=== PATIENT | female | born 1960 | race Caucasian/White ===

== ENCOUNTER 2024-08-12 23:06 | Inpatient (IN) | payer OTHER, SELFPAY ==
[2024-08-12 23:30] VITALS: BP 151/91; PULSE 89; RESP 18; TEMP 36.6; O2SAT 98
--- NOTE | 2024-08-13 01:01 | PC.ADMIT ---
Patient is a 64 year old female admitted to S1 from [facility] ED on 08/12/24 at 2325 on a CV? for dysregulation and decompensation. Patient has history of schizoaffective disorder. Patient?s brother recently performed a wellness check on patient, in which she was refusing to get out of bed, providing nonsensical answers to questions.? Upon arrival to the unit, patient is calm, cooperative and pleasant with admission process. She is alert and oriented x 3, lacks insight into situation and has moments of confusion. Denies SI/HI/VH. She reports hearing voices of men trying to hurt other people. She is able to contract for safety. She is current every day smoker, declining nicotine replacement at this time. Denies alcohol or current substance use, although reports cocaine use years ago. All legal paperwork completed. Patient does have past medical history of HIV. She has her daily medications with her and have been inventoried with the pharmacy. She has declined the flu shot. Patient is being observed on 5 minute checks.
[2024-08-13 01:04] VITALS: BMI 21.7
[2024-08-13 08:00] VITALS: BP 155/95; PULSE 100; RESP 18; TEMP 36.5; O2SAT 97
--- NOTE | 2024-08-13 08:33 | HO.PSYADMNOT ---
HPI Date of Service: 08/13/24 Chief Complaint: psych Sources of Information: patient interviewed, chart reviewed and crisis/core team assessment reviewed HPI Subjective Notes: Section 12B Narrative: The patient is a 64-year-old female, living alone, with a past history of psychotics symptoms with prior psychiatric admissions who was brought to the emergency room of another hospital since her brother went to her home and found her in bed unable to take care of herself. Apparently she had been noncompliant on her medications. She was rushed to the emergency room, medically cleared and transferring to this facility for psychiatric stabilization. On admission, the patient was a very poor historian she reported that she is taking her medications for his medical problems and she is scheduled to have a shot for August 16. It was clear that the patient is scheduled to have Prolixin injectable but she was unable to verbalize the name. During the intake interview, the patient adamantly denies suicidal ideation she was hypoactive but able to do her own ADL less. We will try to gather more collateral information since the patient is a very poor historian but so far she seems chronically psychotic but easily redirectable. Past Psychiatric History: The patient is a very poor historian but apparently she has a long history of psychotic symptoms with prior psychiatric admissions into the hospital for psychotic decompensation. Medical Evaluation Reviewed: Yes PMF Narrative: History of HIV as per chart on antiretrovirals. Family History: Denies Social History: Unable to fully assess Substance History: Denies Trauma History: Refuses to elaborate Diagnostics Vital Signs (24Hr): Vital Signs - 24 hr 08/12/24 23:30 08/13/24 08:00 Temperature 97.8 F 97.7 F Pulse Rate 89 100 Respiratory Rate 18 18 Blood Pressure 151/91 H 155/95 H Pulse Oximetry 98 97 Oxygen Delivery Method Room Air Room Air BMI result Body Mass Index 21.7 Meds/Allergies Meds Home Medications ?Medication ?Instructions ?Recorded ?Confirmed ?Type dolutegravir 50 mg-rilpivirine 25 1 tab PO DAILY 08/12/24 08/12/24 History mg tablet (Juluca) fluphenazine decanoate 25 mg/mL 37.5 mg IM Q4W 08/12/24 08/12/24 History injection solution Allergies Allergies Allergy/AdvReac Type Severity Reaction Status Date / Time Iodinated Contrast Media Allergy Intermediate Rash Verified 08/12/24 23:14 pollen extracts Allergy Intermediate Itchy Eyes Verified 08/12/24 23:14 haloperidol [From Haldol] AdvReac Intermediate Involuntary Verified 08/13/24 01:32 Spasms Mental Status Exam Mental Status Exam Patient Appearance: Appropriate Patient Orientation: Person and Situation Level of Consciousness: Awake and Appropriate Patient Behavior: Guarded and Passive Mood Description: Withdrawn Affect Description: Constricted Patient Cognition Impaired: Yes Ability to Follow Directions: Good Speech Pattern: Clear Hallucinations: None Delusions: Ideas of Reference Thought Process: Distracted and Slowed Thinking Thought Content: positive for [place] and positive for Poverty of Content Judgement: Poor Assessment & Plan Assessment & Plan (1) Schizophrenia: Status: Acute Code(s): F20.9 - Schizophrenia, unspecified Plan The patient is an elderly female with a past history of schizophrenia who was brought to the facility after her brother found her on bed unable to take care of herself and probably noncompliant with medications. The patient is a very poor historian unable to provide more details but it was clear that the patient was unable to take care of herself in the community. Plan 1. Continue 15 minute checks. 2. We will try to gather more collateral information. 3. On the moment she is on a Section 12 B. We will reassess later on with more information. 4. She is on Prolixin scheduled to have her next injection on August 17 Patient educated on: diagnosis, therapeutic strategies and medical condition Reason for continued inpatient stay Substantial Risk for: inability to function, rapid decompensation and med/psych decompensation Statement Statement: I have reviewed the history and physical and performed a pertinent examination on my patient. No changes have occurred unless specified. If the History and Physical was not performed prior to admission, the Hospitalist's service will be consulted for completing the admission physical. Time Spent With Patient Time: Total time managing care of this patient today _45___ minutes.
--- NOTE | 2024-08-13 08:58 | PC.NURSE ---
Patient states that her IM medication is due 08/16/24 at [facility] in [place], she has it with her and she has been getting it in the hospital.
--- NOTE | 2024-08-13 15:04 | PM.EVENT ---
Event Note Date of Service: 08/13/24 Event Note: attempted to meet with pt for hospitalist medical consult. pt was resting in bed quietly. she declined consult. I explained the reasoning for the consult. to clear her medically for the floor and discuss medical history and any current acute concerns. pt still declined. states she will let us know if anything acute medically comes up. Thank you for allowing me to participate in the pt's care. signing off for now. Please contact the medical team if any questions or concerns. Time Spent With Patient Time: Total time managing care of this patient today ____ minutes.
[2024-08-13 20:00] VITALS: BP 132/70; PULSE 84; RESP 16; TEMP 36.3; O2SAT 98
[2024-08-14] MEDS: Rilpivirine HCL 25 MG TABLET PO (08:26)
[2024-08-14] MEDS: Dolutegravir Sodium 50 MG TABLET PO (08:28)
--- NOTE | 2024-08-14 16:34 | HO.PSYCHPN ---
Subjective Subjective Date of Service: 08/14/24 Reason For Visit: psych Subjective Notes: Conditional Voluntary Interim History: The nursing staff reported the patient remained in her room most of the time seclusive. On interview the patient denies new symptoms looks internally preoccupied. The social work associate will try to get more collateral information and contact her brother. Mental Status Exam Mental Status Exam Patient Appearance: Appropriate Patient Orientation: Person and Situation Level of Consciousness: Awake Patient Behavior: Guarded and Passive Mood Description: Calm Affect Description: Constricted Patient Cognition Impaired: Yes Ability to Follow Directions: Good Speech Pattern: Clear Hallucinations: None Delusions: Not Present Thought Process: Distracted and Slowed Thinking Thought Content: positive for [place] and positive for Poverty of Content Judgement: Poor Diagnostics Vital Signs (24Hr): Vital Signs - 24 hr 08/13/24 20:00 Temperature 97.4 F Pulse Rate 84 Respiratory Rate 16 Blood Pressure 132/70 Pulse Oximetry 98 Oxygen Delivery Method Room Air BMI result Body Mass Index 21.7 Medications Medications Current Medications Acetaminophen (Acetaminophen 325 Mg Tablet) 650 mg PO Q6H PRN PRN Reason: Headache/Pain Mild Scale (1-3) Al Hydroxide/Mg Hydroxide (Magnesium Hydrox/Alum Hydrox 30 Ml Oral.Susp) 30 ml PO Q6H PRN PRN Reason: Heartburn/Nausea Dolutegravir Sodium (Dolutegravir Sodium 50 Mg Tablet) 50 mg PO DAILY [facility] Last Admin: 08/14/24 08:28 Dose: 50 mg Fluphenazine Decanoate (Fluphenazine Decanoate 25 Mg/Ml 5 Ml Vial) 37.5 mg IM Q28D [facility] Hydroxyzine HCl (Hydroxyzine Hcl 25 Mg Tablet) 25 mg PO Q6H PRN PRN Reason: Anxiety Magnesium Hydroxide (Milk Of Magnesia 30 Ml Oral.Susp) 30 ml PO DAILY PRN PRN Reason: Constipation Rilpivirine (Rilpivirine Hcl 25 Mg Tablet) 25 mg PO DAILY [facility] Last Admin: 08/14/24 08:26 Dose: 25 mg Trazodone HCl (Trazodone Hcl 50 Mg Tablet) 50 mg PO BEDTIME MRX1 PRN PRN Reason: Insomnia Allergies Allergies Allergy/AdvReac Type Severity Reaction Status Date / Time Iodinated Contrast Media Allergy Intermediate Rash Verified 08/12/24 23:14 pollen extracts Allergy Intermediate Itchy Eyes Verified 08/12/24 23:14 haloperidol [From Haldol] AdvReac Intermediate Involuntary Verified 08/13/24 01:32 Spasms Assessment & Plan Assessment & Plan (1) Schizophrenia: Status: Acute Code(s): F20.9 - Schizophrenia, unspecified Plan The patient is an elderly female with a past history of schizophrenia who was brought to the facility after her brother found her on bed unable to take care of herself and probably noncompliant with medications. The patient is a very poor historian unable to provide more details but it was clear that the patient was unable to take care of herself in the community. Plan 1. Continue 15 minute checks. 2. We will try to gather more collateral information. 3. On the moment she is on a Section 12 B. We will reassess later on with more information. 4. She is on Prolixin scheduled to have her next injection on August 17 Reason for continued inpatient stay Substantial Risk for: inability to function, rapid decompensation and med/psych decompensation Time Spent With Patient Time: Total time managing care of this patient today __20__ minutes.
[2024-08-15 07:55] VITALS: BP 123/66; PULSE 85; RESP 18; TEMP 36.8; O2SAT 99
[2024-08-15] MEDS: Rilpivirine HCL 25 MG TABLET PO (08:09)
[2024-08-15] MEDS: Dolutegravir Sodium 50 MG TABLET PO (08:09)
--- NOTE | 2024-08-15 12:58 | HO.PSYCHPN ---
Subjective Subjective Date of Service: 08/15/24 Reason For Visit: psych Subjective Notes: Conditional Voluntary Interim History: The nursing staff reported the patient had being seclusive with flat affect. She states that she feels safe in the unit slept well last night. On interview the patient was minimally engageable denies new symptoms. We will try to gather more collateral information Mental Status Exam Mental Status Exam Patient Appearance: Appropriate Patient Orientation: Person and Situation Level of Consciousness: Awake and Appropriate Patient Behavior: Guarded and Passive Mood Description: Withdrawn Affect Description: Constricted Patient Cognition Impaired: Yes Ability to Follow Directions: Good Speech Pattern: Clear Hallucinations: None Delusions: Paranoid Ideation and Ideas of Reference Thought Process: Distracted and Slowed Thinking Thought Content: positive for [place] and positive for Poverty of Content Judgement: Poor Diagnostics Vital Signs (24Hr): Vital Signs - 24 hr 08/15/24 07:55 Temperature 98.2 F Pulse Rate 85 Respiratory Rate 18 Blood Pressure 123/66 Pulse Oximetry 99 Oxygen Delivery Method Room Air BMI result Body Mass Index 21.7 Medications Medications Current Medications Acetaminophen (Acetaminophen 325 Mg Tablet) 650 mg PO Q6H PRN PRN Reason: Headache/Pain Mild Scale (1-3) Al Hydroxide/Mg Hydroxide (Magnesium Hydrox/Alum Hydrox 30 Ml Oral.Susp) 30 ml PO Q6H PRN PRN Reason: Heartburn/Nausea Dolutegravir Sodium (Dolutegravir Sodium 50 Mg Tablet) 50 mg PO DAILY [facility] Last Admin: 08/15/24 08:09 Dose: 50 mg Fluphenazine Decanoate (Fluphenazine Decanoate 25 Mg/Ml 5 Ml Vial) 37.5 mg IM Q28D [facility] Hydroxyzine HCl (Hydroxyzine Hcl 25 Mg Tablet) 25 mg PO Q6H PRN PRN Reason: Anxiety Magnesium Hydroxide (Milk Of Magnesia 30 Ml Oral.Susp) 30 ml PO DAILY PRN PRN Reason: Constipation Rilpivirine (Rilpivirine Hcl 25 Mg Tablet) 25 mg PO DAILY [facility] Last Admin: 08/15/24 08:09 Dose: 25 mg Trazodone HCl (Trazodone Hcl 50 Mg Tablet) 50 mg PO BEDTIME MRX1 PRN PRN Reason: Insomnia Allergies Allergies Allergy/AdvReac Type Severity Reaction Status Date / Time Iodinated Contrast Media Allergy Intermediate Rash Verified 08/12/24 23:14 pollen extracts Allergy Intermediate Itchy Eyes Verified 08/12/24 23:14 haloperidol [From Haldol] AdvReac Intermediate Involuntary Verified 08/13/24 01:32 Spasms Assessment & Plan Assessment & Plan (1) Schizophrenia: Status: Acute Code(s): F20.9 - Schizophrenia, unspecified Plan The patient is an elderly female with a past history of schizophrenia who was brought to the facility after her brother found her on bed unable to take care of herself and probably noncompliant with medications. The patient is a very poor historian unable to provide more details but it was clear that the patient was unable to take care of herself in the community. Plan 1. Continue 15 minute checks. 2. We will try to gather more collateral information. 3. On the moment she is on a Section 12 B. We will reassess later on with more information. 4. She is on Prolixin scheduled to have her next injection on August 17 Reason for continued inpatient stay Substantial Risk for: inability to function, rapid decompensation and med/psych decompensation Time Spent With Patient Time: Total time managing care of this patient today _20___ minutes.
--- NOTE | 2024-08-15 13:34 | P.PNPSI_ITS ---
Subjective Subjective Date of Service: 08/15/24 Reason For Visit: psych Subjective Notes: Conditional Voluntary Interim History: The nursing staff reported the patient had been flat affect, she Diagnostics Vital Signs (24Hr): Vital Signs - 24 hr 08/15/24 07:55 Temperature 98.2 F Pulse Rate 85 Respiratory Rate 18 Blood Pressure 123/66 Pulse Oximetry 99 Oxygen Delivery Method Room Air BMI result Body Mass Index 21.7 Medications Medications Current Medications Acetaminophen (Acetaminophen 325 Mg Tablet) 650 mg PO Q6H PRN PRN Reason: Headache/Pain Mild Scale (1-3) Al Hydroxide/Mg Hydroxide (Magnesium Hydrox/Alum Hydrox 30 Ml Oral.Susp) 30 ml PO Q6H PRN PRN Reason: Heartburn/Nausea Dolutegravir Sodium (Dolutegravir Sodium 50 Mg Tablet) 50 mg PO DAILY [facility] Last Admin: 08/15/24 08:09 Dose: 50 mg Fluphenazine Decanoate (Fluphenazine Decanoate 25 Mg/Ml 5 Ml Vial) 37.5 mg IM Q28D [facility] Hydroxyzine HCl (Hydroxyzine Hcl 25 Mg Tablet) 25 mg PO Q6H PRN PRN Reason: Anxiety Magnesium Hydroxide (Milk Of Magnesia 30 Ml Oral.Susp) 30 ml PO DAILY PRN PRN Reason: Constipation Rilpivirine (Rilpivirine Hcl 25 Mg Tablet) 25 mg PO DAILY [facility] Last Admin: 08/15/24 08:09 Dose: 25 mg Trazodone HCl (Trazodone Hcl 50 Mg Tablet) 50 mg PO BEDTIME MRX1 PRN PRN Reason: Insomnia Allergies Allergies Allergy/AdvReac Type Severity Reaction Status Date / Time Iodinated Contrast Media Allergy Intermediate Rash Verified 08/12/24 23:14 pollen extracts Allergy Intermediate Itchy Eyes Verified 08/12/24 23:14 haloperidol [From Haldol] AdvReac Intermediate Involuntary Verified 08/13/24 01:32 Spasms Assessment & Plan Assessment & Plan (1) Schizophrenia: Status: Acute Code(s): F20.9 - Schizophrenia, unspecified Plan The patient is an elderly female with a past history of schizophrenia who was brought to the facility after her brother found her on bed unable to take care of herself and probably noncompliant with medications. The patient is a very poor historian unable to provide more details but it was clear that the patient was unable to take care of herself in the community. Plan 1. Continue 15 minute checks. 2. We will try to gather more collateral information. 3. On the moment she is on a Section 12 B. We will reassess later on with more information. 4. She is on Prolixin scheduled to have her next injection on August 17 Time Spent With Patient Time: Total time managing care of this patient today ____ minutes.
[2024-08-16 08:00] VITALS: RESP 18
--- NOTE | 2024-08-16 13:30 | HO.PSYCHPN ---
Subjective Subjective Date of Service: 08/16/24 Reason For Visit: psych Subjective Notes: Conditional Voluntary Interim History: The nursing staff reported the patient had been isolative, apparently [facility] had been in. According to the elementary school social worker she contact her brother and apparently she had been admitted 6 times in the last year. On interview the patient was concerned about her injection he was expected that she could be discharged home so she can have for treatment over there she denies active psychotic symptoms but she is mostly isolative. Mental Status Exam Mental Status Exam Patient Appearance: Appropriate (On hospital gowns) Patient Orientation: Person and Situation Level of Consciousness: Awake and Appropriate Patient Behavior: Guarded and Passive Mood Description: Withdrawn Affect Description: Constricted Patient Cognition Impaired: Yes Ability to Follow Directions: Good Speech Pattern: Clear Hallucinations: None Delusions: Paranoid Ideation and Ideas of Reference Thought Process: Distracted and Slowed Thinking Thought Content: positive for [place] and positive for Poverty of Content Judgement: Poor Diagnostics Vital Signs (24Hr): Vital Signs - 24 hr 08/16/24 08:00 Respiratory Rate 18 BMI result Body Mass Index 21.7 Medications Medications Current Medications Acetaminophen (Acetaminophen 325 Mg Tablet) 650 mg PO Q6H PRN PRN Reason: Headache/Pain Mild Scale (1-3) Al Hydroxide/Mg Hydroxide (Magnesium Hydrox/Alum Hydrox 30 Ml Oral.Susp) 30 ml PO Q6H PRN PRN Reason: Heartburn/Nausea Dolutegravir Sodium (Dolutegravir Sodium 50 Mg Tablet) 50 mg PO DAILY [facility] Last Admin: 08/16/24 08:28 Dose: Not Given Fluphenazine Decanoate (Fluphenazine Decanoate 25 Mg/Ml 5 Ml Vial) 37.5 mg IM Q28D [facility] Last Admin: 08/16/24 08:28 Dose: Not Given Hydroxyzine HCl (Hydroxyzine Hcl 25 Mg Tablet) 25 mg PO Q6H PRN PRN Reason: Anxiety Magnesium Hydroxide (Milk Of Magnesia 30 Ml Oral.Susp) 30 ml PO DAILY PRN PRN Reason: Constipation Rilpivirine (Rilpivirine Hcl 25 Mg Tablet) 25 mg PO DAILY [facility] Last Admin: 08/16/24 08:28 Dose: Not Given Trazodone HCl (Trazodone Hcl 50 Mg Tablet) 50 mg PO BEDTIME MRX1 PRN PRN Reason: Insomnia Allergies Allergies Allergy/AdvReac Type Severity Reaction Status Date / Time Iodinated Contrast Media Allergy Intermediate Rash Verified 08/12/24 23:14 pollen extracts Allergy Intermediate Itchy Eyes Verified 08/12/24 23:14 haloperidol [From Haldol] AdvReac Intermediate Involuntary Verified 08/13/24 01:32 Spasms Assessment & Plan Assessment & Plan (1) Schizophrenia: Status: Acute Code(s): F20.9 - Schizophrenia, unspecified Plan The patient is an elderly female with a past history of schizophrenia with long-acting injectables an HIV on treatment. She was brought from the emergency room of another hospital after her brother brought her since she he was on her bed hypoactive unable to take care of herself. Plan 1. We gather some collateral information apparently she had been admitted 6 times in the last year due to psychotic decompensation. 2. We will continue with Prolixin deck. 3. Reassessment with results. Reason for continued inpatient stay Substantial Risk for: inability to function, rapid decompensation and med/psych decompensation Time Spent With Patient Time: Total time managing care of this patient today __20__ minutes.
--- NOTE | 2024-08-16 16:05 | PC.NURSE ---
Patient declined all scheduled medications, notified.
[2024-08-16 20:00] VITALS: BP 121/72; PULSE 85; RESP 18; TEMP 36.2; O2SAT 98
--- NOTE | 2024-08-17 07:51 | HO.PSYCHPN ---
Subjective Subjective Date of Service: 08/17/24 Reason For Visit: psych Subjective Notes: Conditional Voluntary Interim History: The nursing staff reported the patient slept well last night, she remains seclusive in her room. Yesterday she refused her medication at night for HIV since it is not the pills that she used to take. On interview the patient denies new symptoms, she states that she wants to go back home. Apparently the patient had been admitted several times in the last year due to exacerbation of psychosis. We will try to gather more collateral information but it seems that she is mostly seclusive with lack of energy. So we review her Prolixin is every 4 weeks and it seems that he weans off earlier so we will suggest to give it earlier every 3 weeks instead. Mental Status Exam Mental Status Exam Patient Appearance: Appropriate Patient Orientation: Person and Situation Level of Consciousness: Awake and Appropriate Patient Behavior: Guarded and Passive Mood Description: Withdrawn Affect Description: Constricted Patient Cognition Impaired: Yes Ability to Follow Directions: Good Speech Pattern: Clear Hallucinations: None Delusions: Paranoid Ideation and Ideas of Reference Thought Process: Distracted and Slowed Thinking Thought Content: positive for [place] and positive for Poverty of Content Judgement: Fair Diagnostics Vital Signs (24Hr): Vital Signs - 24 hr 08/16/24 08:00 08/16/24 20:00 Temperature 97.2 F Pulse Rate 85 Respiratory Rate 18 18 Blood Pressure 121/72 Pulse Oximetry 98 Oxygen Delivery Method Room Air BMI result Body Mass Index 21.7 Medications Medications Current Medications Acetaminophen (Acetaminophen 325 Mg Tablet) 650 mg PO Q6H PRN PRN Reason: Headache/Pain Mild Scale (1-3) Al Hydroxide/Mg Hydroxide (Magnesium Hydrox/Alum Hydrox 30 Ml Oral.Susp) 30 ml PO Q6H PRN PRN Reason: Heartburn/Nausea Dolutegravir Sodium (Dolutegravir Sodium 50 Mg Tablet) 50 mg PO DAILY [facility] Last Admin: 08/16/24 08:28 Dose: Not Given Fluphenazine Decanoate (Fluphenazine Decanoate 25 Mg/Ml 5 Ml Vial) 37.5 mg IM Q28D [facility] Last Admin: 08/16/24 08:28 Dose: Not Given Fluphenazine Decanoate (Fluphenazine Decanoate 25 Mg/Ml 5 Ml Vial) 37.5 mg IM ONCE ONE Stop: 08/17/24 07:50 Hydroxyzine HCl (Hydroxyzine Hcl 25 Mg Tablet) 25 mg PO Q6H PRN PRN Reason: Anxiety Magnesium Hydroxide (Milk Of Magnesia 30 Ml Oral.Susp) 30 ml PO DAILY PRN PRN Reason: Constipation Rilpivirine (Rilpivirine Hcl 25 Mg Tablet) 25 mg PO DAILY [facility] Last Admin: 08/16/24 08:28 Dose: Not Given Trazodone HCl (Trazodone Hcl 50 Mg Tablet) 50 mg PO BEDTIME MRX1 PRN PRN Reason: Insomnia Allergies Allergies Allergy/AdvReac Type Severity Reaction Status Date / Time Iodinated Contrast Media Allergy Intermediate Rash Verified 08/12/24 23:14 pollen extracts Allergy Intermediate Itchy Eyes Verified 08/12/24 23:14 haloperidol [From Haldol] AdvReac Intermediate Involuntary Verified 08/13/24 01:32 Spasms Assessment & Plan Assessment & Plan (1) Schizophrenia: Status: Acute Code(s): F20.9 - Schizophrenia, unspecified Plan The patient is an elderly female with a past history of schizophrenia with long-acting injectables an HIV on treatment. She was brought from the emergency room of another hospital after her brother brought her since she he was on her bed hypoactive unable to take care of herself. Plan 1. We gather some collateral information apparently she had been admitted 6 times in the last year due to psychotic decompensation. 2. We will continue with Prolixin deck. We are putting her scheduled dose on August 17 37.5 IM. We are considering to change the scheduling every 3 weeks instead of every 4. 3. Reassessment with results. Reason for continued inpatient stay Substantial Risk for: inability to function, rapid decompensation and med/psych decompensation Time Spent With Patient Time: Total time managing care of this patient today __20__ minutes.
[2024-08-17 10:26] VITALS: BP 93/57; PULSE 89; RESP 16; TEMP 36.8; O2SAT 97
[2024-08-17] MEDS: DOLUTEGRAVIR 50 MG PO (10:42)
[2024-08-17] MEDS: RILPIVIRINE 25 MG PO (10:42)
[2024-08-17] MEDS: Acetaminophen 325 MG TABLET 650 MG PO (14:56)
[2024-08-17] MEDS: fluPHENAZine decanoate 25 MG/ML 5 ML VIAL 37.5 MG IM (14:58)
--- NOTE | 2024-08-18 08:01 | P.PNPSI_ITS ---
Subjective Subjective Date of Service: 08/18/24 Reason For Visit: psych Diagnostics Vital Signs (24Hr): Vital Signs - 24 hr 08/17/24 10:26 Temperature 98.2 F Pulse Rate 89 Respiratory Rate 16 Blood Pressure 93/57 L Pulse Oximetry 97 Oxygen Delivery Method Room Air BMI result Body Mass Index 21.7 Medications Medications Current Medications Acetaminophen (Acetaminophen 325 Mg Tablet) 650 mg PO Q6H PRN PRN Reason: Headache/Pain Mild Scale (1-3) Last Admin: 08/17/24 14:56 Dose: 650 mg Al Hydroxide/Mg Hydroxide (Magnesium Hydrox/Alum Hydrox 30 Ml Oral.Susp) 30 ml PO Q6H PRN PRN Reason: Heartburn/Nausea Fluphenazine Decanoate (Fluphenazine Decanoate 25 Mg/Ml 5 Ml Vial) 37.5 mg IM Q28D [facility] Last Admin: 08/16/24 08:28 Dose: Not Given Hydroxyzine HCl (Hydroxyzine Hcl 25 Mg Tablet) 25 mg PO Q6H PRN PRN Reason: Anxiety Magnesium Hydroxide (Milk Of Magnesia 30 Ml Oral.Susp) 30 ml PO DAILY PRN PRN Reason: Constipation Patient Own Medication [ Dolutegravir 50mg - Rilpavirine 25mg Tabs] 1 each PO DAILY [facility] Last Admin: 08/17/24 10:42 Dose: 1 each Trazodone HCl (Trazodone Hcl 50 Mg Tablet) 50 mg PO BEDTIME MRX1 PRN PRN Reason: Insomnia Allergies Allergies Allergy/AdvReac Type Severity Reaction Status Date / Time Iodinated Contrast Media Allergy Intermediate Rash Verified 08/12/24 23:14 pollen extracts Allergy Intermediate Itchy Eyes Verified 08/12/24 23:14 haloperidol [From Haldol] AdvReac Intermediate Involuntary Verified 08/13/24 01:32 Spasms Assessment & Plan Assessment & Plan (1) Schizophrenia: Status: Acute Code(s): F20.9 - Schizophrenia, unspecified Plan The patient is an elderly female with a past history of schizophrenia with long-acting injectables an HIV on treatment. She was brought from the emergency room of another hospital after her brother brought her since she he was on her bed hypoactive unable to take care of herself. Plan 1. We gather some collateral information apparently she had been admitted 6 times in the last year due to psychotic decompensation. 2. We will continue with Prolixin deck. We are putting her scheduled dose on August 17 37.5 IM. We are considering to change the scheduling every 3 weeks instead of every 4. 3. Reassessment with results. Time Spent With Patient Time: Total time managing care of this patient today ____ minutes.
--- NOTE | 2024-08-18 16:13 | HO.PSYCHPN ---
Subjective Subjective Date of Service: 08/18/24 Reason For Visit: psych Interim History: Met with patient; discussed with team Patient calm and polite but also guarded, some suspiciousness. Campus Administrative Assistant discussed medication management regarding long-acting Prolixin; while chart indicates that patient refused injection, she maintains that she was already given the injection even telling bond writer the injection location. Campus Administrative Assistant agreed to examine chart. Patient initially refused HIV medication but later took it. Mental Status Exam Mental Status Exam Patient Appearance: Appropriate (in hospital attire) Patient Orientation: Person, Place and Situation Level of Consciousness: Awake and Appropriate Patient Behavior: Guarded (somewhat guarded and suspicious, but improved cooperation) and Good Eye Contact Mood Description: Constricted Affect Description: Constricted Patient Cognition Impaired: Yes Ability to Follow Directions: Fair Speech Pattern: Clear (TD present) Hallucinations: None Delusions: Present (some paranoia seems present) Thought Process: Goal Oriented and Slowed Thinking Thought Content: positive for [place] Judgement and Insight: impaired Diagnostics Vital Signs (24Hr): BMI result Body Mass Index 21.7 Medications Medications Current Medications Acetaminophen (Acetaminophen 325 Mg Tablet) 650 mg PO Q6H PRN PRN Reason: Headache/Pain Mild Scale (1-3) Last Admin: 08/17/24 14:56 Dose: 650 mg Al Hydroxide/Mg Hydroxide (Magnesium Hydrox/Alum Hydrox 30 Ml Oral.Susp) 30 ml PO Q6H PRN PRN Reason: Heartburn/Nausea Fluphenazine Decanoate (Fluphenazine Decanoate 25 Mg/Ml 5 Ml Vial) 37.5 mg IM Q28D [facility] Last Admin: 08/16/24 08:28 Dose: Not Given Hydroxyzine HCl (Hydroxyzine Hcl 25 Mg Tablet) 25 mg PO Q6H PRN PRN Reason: Anxiety Magnesium Hydroxide (Milk Of Magnesia 30 Ml Oral.Susp) 30 ml PO DAILY PRN PRN Reason: Constipation Patient Own Medication [ Dolutegravir 50mg - Rilpavirine 25mg Tabs] 1 each PO DAILY [facility] Last Admin: 08/18/24 08:59 Dose: Not Given Trazodone HCl (Trazodone Hcl 50 Mg Tablet) 50 mg PO BEDTIME MRX1 PRN PRN Reason: Insomnia Allergies Allergies Allergy/AdvReac Type Severity Reaction Status Date / Time Iodinated Contrast Media Allergy Intermediate Rash Verified 08/12/24 23:14 pollen extracts Allergy Intermediate Itchy Eyes Verified 08/12/24 23:14 haloperidol [From Haldol] AdvReac Intermediate Involuntary Verified 08/13/24 01:32 Spasms Assessment & Plan Assessment & Plan (1) Schizophrenia: Status: Acute Code(s): F20.9 - Schizophrenia, unspecified Plan 08/18 Patient calm and polite but also guarded, some suspiciousness. Campus Administrative Assistant discussed medication management regarding long-acting Prolixin; while chart indicates that patient refused injection, she maintains that she was already given the injection even telling bond writer the injection location. Campus Administrative Assistant agreed to examine chart. Patient initially refused HIV medication but later took it. Patient educated on: diagnosis, medication risk/benefits and medical condition Informed Consent: understands and further education needed Reason for continued inpatient stay Substantial Risk for: rapid decompensation Time Spent With Patient Time: Total time managing care of this patient today ____ minutes.
[2024-08-18] MEDS: RILPIVIRINE 25 MG PO (16:55)
[2024-08-18] MEDS: DOLUTEGRAVIR 50 MG PO (16:55)
[2024-08-19] MEDS: DOLUTEGRAVIR 50 MG PO (08:48)
[2024-08-19] MEDS: RILPIVIRINE 25 MG PO (08:48)
[2024-08-19] MEDS: LORazepam 0.5 MG TABLET PO (15:36)
--- NOTE | 2024-08-19 22:34 | HO.PSYCHPN ---
Subjective Subjective Date of Service: 08/19/24 Reason For Visit: psych Interim History: Met with patient; discussed with team Patient seems more relaxed, more cooperative. On further chart review it turns out that patient did in fact get her long-acting Prolixin injectable on 08/17 and that mistake was due to a charting air. Patient denies any AVH, SI or HI or paranoid thinking. She thinks she wants to discharge home but she is not sure if her family is ready to take her back. Agrees to communication with them. Mental Status Exam Mental Status Exam Patient Appearance: Appropriate (in hospital attire) Patient Orientation: Person, Place and Situation Level of Consciousness: Awake and Appropriate Patient Behavior: Appropriate (no longer guarded) and Good Eye Contact Mood Description: Calm ( good ) Affect Description: Constricted Patient Cognition Impaired: Yes Ability to Follow Directions: Fair Speech Pattern: Clear (TD present) Hallucinations: None (denies) Delusions: Not Present (denies and none expressed) Thought Process: Goal Oriented Thought Content: positive for [place] Judgement and Insight: impaired but improving Diagnostics Vital Signs (24Hr): BMI result Body Mass Index 21.7 Medications Medications Current Medications Acetaminophen (Acetaminophen 325 Mg Tablet) 650 mg PO Q6H PRN PRN Reason: Headache/Pain Mild Scale (1-3) Last Admin: 08/17/24 14:56 Dose: 650 mg Al Hydroxide/Mg Hydroxide (Magnesium Hydrox/Alum Hydrox 30 Ml Oral.Susp) 30 ml PO Q6H PRN PRN Reason: Heartburn/Nausea Fluphenazine Decanoate (Fluphenazine Decanoate 25 Mg/Ml 5 Ml Vial) 37.5 mg IM Q28D [facility] Last Admin: 08/16/24 08:28 Dose: Not Given Hydroxyzine HCl (Hydroxyzine Hcl 25 Mg Tablet) 25 mg PO Q6H PRN PRN Reason: Anxiety Lorazepam (Lorazepam 1 Mg Tablet) 5 mg PO DAILY PRN PRN Reason: Anxiety Magnesium Hydroxide (Milk Of Magnesia 30 Ml Oral.Susp) 30 ml PO DAILY PRN PRN Reason: Constipation Patient Own Medication [ Dolutegravir 50mg - Rilpavirine 25mg Tabs] 1 each PO DAILY [facility] Last Admin: 08/19/24 08:48 Dose: 1 each Trazodone HCl (Trazodone Hcl 50 Mg Tablet) 50 mg PO BEDTIME MRX1 PRN PRN Reason: Insomnia Allergies Allergies Allergy/AdvReac Type Severity Reaction Status Date / Time Iodinated Contrast Media Allergy Intermediate Rash Verified 08/12/24 23:14 pollen extracts Allergy Intermediate Itchy Eyes Verified 08/12/24 23:14 haloperidol [From Haldol] AdvReac Intermediate Involuntary Verified 08/13/24 01:32 Spasms Assessment & Plan Assessment & Plan (1) Schizophrenia: Status: Acute Code(s): F20.9 - Schizophrenia, unspecified Plan 08/18 Patient calm and polite but also guarded, some suspiciousness. Control Operator discussed medication management regarding long-acting Prolixin; while chart indicates that patient refused injection, she maintains that she was already given the injection even telling account underwriter the injection location. Control Operator agreed to examine chart. Patient initially refused HIV medication but later took it. 08/19 Patient seems more relaxed, more cooperative. On further chart review it turns out that patient did in fact get her long-acting Prolixin injectable on 08/17 and that mistake was due to a charting air. Patient denies any AVH, SI or HI or paranoid thinking. She thinks she wants to discharge home but she is not sure if her family is ready to take her back. Agrees to communication with them. Patient educated on: diagnosis and medication risk/benefits Informed Consent: understands Reason for continued inpatient stay Substantial Risk for: rapid decompensation Time Spent With Patient Time: Total time managing care of this patient today ____ minutes.
[2024-08-20] MEDS: Acetaminophen 325 MG TABLET 650 MG PO (03:20)
[2024-08-20 08:00] VITALS: RESP 18
[2024-08-20] MEDS: DOLUTEGRAVIR 50 MG PO (08:56)
[2024-08-20] MEDS: RILPIVIRINE 25 MG PO (08:56)
--- NOTE | 2024-08-20 10:05 | PC.NURSE ---
María declined morning vital signs/EKG despite education and encouragement. Dr. Girard notified.
--- NOTE | 2024-08-20 10:43 | P.PNPSI_ITS ---
Subjective Subjective Date of Service: 08/20/24 Reason For Visit: psych Subjective Notes: Conditional Voluntary Interim History: The nursing staff reported the patient had been visible in the unit, poor appetite but compliant with treatment. On interview the patient reported that she wants to go back home and talked with her brothers, she stated that it was a misunderstanding that brought her here. Still hypoactive but more oriented at for her shot last . Mental Status Exam Mental Status Exam Patient Appearance: Appropriate Patient Orientation: Person and Situation Level of Consciousness: Awake and Appropriate Patient Behavior: Guarded and Passive Mood Description: Withdrawn Affect Description: Constricted Patient Cognition Impaired: Yes Ability to Follow Directions: Good Speech Pattern: Clear Hallucinations: None Delusions: Not Present Thought Process: Distracted and Slowed Thinking Thought Content: positive for [place] and positive for Poverty of Content Judgement: Fair Diagnostics Vital Signs (24Hr): Vital Signs - 24 hr 08/20/24 08:00 Respiratory Rate 18 BMI result Body Mass Index 21.7 Medications Medications Current Medications Acetaminophen (Acetaminophen 325 Mg Tablet) 650 mg PO Q6H PRN PRN Reason: Headache/Pain Mild Scale (1-3) Last Admin: 08/20/24 03:20 Dose: 650 mg Al Hydroxide/Mg Hydroxide (Magnesium Hydrox/Alum Hydrox 30 Ml Oral.Susp) 30 ml PO Q6H PRN PRN Reason: Heartburn/Nausea Fluphenazine Decanoate (Fluphenazine Decanoate 25 Mg/Ml 5 Ml Vial) 37.5 mg IM Q28D [facility] Last Admin: 08/16/24 08:28 Dose: Not Given Hydroxyzine HCl (Hydroxyzine Hcl 25 Mg Tablet) 25 mg PO Q6H PRN PRN Reason: Anxiety Lorazepam (Lorazepam 1 Mg Tablet) 5 mg PO DAILY PRN PRN Reason: Anxiety Magnesium Hydroxide (Milk Of Magnesia 30 Ml Oral.Susp) 30 ml PO DAILY PRN PRN Reason: Constipation Patient Own Medication [ Dolutegravir 50mg - Rilpavirine 25mg Tabs] 1 each PO DAILY [facility] Last Admin: 08/20/24 08:56 Dose: 1 each Trazodone HCl (Trazodone Hcl 50 Mg Tablet) 50 mg PO BEDTIME MRX1 PRN PRN Reason: Insomnia Allergies Allergies Allergy/AdvReac Type Severity Reaction Status Date / Time Iodinated Contrast Media Allergy Intermediate Rash Verified 08/12/24 23:14 pollen extracts Allergy Intermediate Itchy Eyes Verified 08/12/24 23:14 haloperidol [From Haldol] AdvReac Intermediate Involuntary Verified 08/13/24 01:32 Spasms Assessment & Plan Assessment & Plan (1) Schizophrenia: Status: Acute Code(s): F20.9 - Schizophrenia, unspecified Plan The patient is an elderly female with a past history of schizophrenia referred to the facility since her brother found her hypoactive in her home. She has good social support. Apparently she had several admissions into the hospital for exacerbation of psychosis. She is on fluphenazine IM 37 mg once a month. Plan 1. Continue with fluphenazine IM 37.5 mg last dose August 17. 2. Continue with HIV meds. 3. We will try to contact her family and have a family meeting. It seems that the patient decompensates before the 4 weeks of her next IM antipsychotic we will recommend to use it more frequently. Reason for continued inpatient stay Substantial Risk for: inability to function, rapid decompensation and med/psych decompensation Time Spent With Patient Time: Total time managing care of this patient today __20__ minutes.
[2024-08-21 08:26] VITALS: BP 107/64; PULSE 91; RESP 16; TEMP 37.1; O2SAT 96
[2024-08-21] MEDS: RILPIVIRINE 25 MG PO (08:31)
[2024-08-21] MEDS: DOLUTEGRAVIR 50 MG PO (08:31)
--- NOTE | 2024-08-21 15:51 | HO.PSYCHPN ---
Subjective Subjective Date of Service: 08/21/24 Reason For Visit: psych Subjective Notes: Conditional Voluntary Interim History: The nursing staff reported the patient has been isolative in her room, withdrawn paranoid she took medications but declined vital signs. The certified social workers in health care reported that she signed a release to [facility] so we can get more collateral information. Interview the patient denies new symptoms still seclusive. Mental Status Exam Mental Status Exam Patient Appearance: Well Grooomed and Appropriate Patient Orientation: Person and Situation Level of Consciousness: Awake and Appropriate Patient Behavior: Guarded and Passive Mood Description: Withdrawn Affect Description: Constricted Patient Cognition Impaired: Yes Ability to Follow Directions: Good Speech Pattern: Clear Hallucinations: None Delusions: Not Present Thought Process: Distracted and Slowed Thinking Thought Content: positive for [place] and positive for Poverty of Content Judgement: Fair Diagnostics Vital Signs (24Hr): Vital Signs - 24 hr 08/21/24 08:26 Temperature 98.7 F Pulse Rate 91 Respiratory Rate 16 Blood Pressure 107/64 Pulse Oximetry 96 Oxygen Delivery Method Room Air BMI result Body Mass Index 21.7 Medications Medications Current Medications Acetaminophen (Acetaminophen 325 Mg Tablet) 650 mg PO Q6H PRN PRN Reason: Headache/Pain Mild Scale (1-3) Last Admin: 08/20/24 03:20 Dose: 650 mg Al Hydroxide/Mg Hydroxide (Magnesium Hydrox/Alum Hydrox 30 Ml Oral.Susp) 30 ml PO Q6H PRN PRN Reason: Heartburn/Nausea Fluphenazine Decanoate (Fluphenazine Decanoate 25 Mg/Ml 5 Ml Vial) 37.5 mg IM Q28D [facility] Last Admin: 08/16/24 08:28 Dose: Not Given Hydroxyzine HCl (Hydroxyzine Hcl 25 Mg Tablet) 25 mg PO Q6H PRN PRN Reason: Anxiety Lorazepam (Lorazepam 1 Mg Tablet) 5 mg PO DAILY PRN PRN Reason: Anxiety Magnesium Hydroxide (Milk Of Magnesia 30 Ml Oral.Susp) 30 ml PO DAILY PRN PRN Reason: Constipation Patient Own Medication [ Dolutegravir 50mg - Rilpavirine 25mg Tabs] 1 each PO DAILY [facility] Last Admin: 08/21/24 08:31 Dose: 1 each Trazodone HCl (Trazodone Hcl 50 Mg Tablet) 50 mg PO BEDTIME MRX1 PRN PRN Reason: Insomnia Allergies Allergies Allergy/AdvReac Type Severity Reaction Status Date / Time Iodinated Contrast Media Allergy Intermediate Rash Verified 08/12/24 23:14 pollen extracts Allergy Intermediate Itchy Eyes Verified 08/12/24 23:14 haloperidol [From Haldol] AdvReac Intermediate Involuntary Verified 08/13/24 01:32 Spasms Assessment & Plan Assessment & Plan (1) Schizophrenia: Status: Acute Code(s): F20.9 - Schizophrenia, unspecified Plan The patient is an elderly female with a past history of schizophrenia referred to the facility since her brother found her hypoactive in her home. She has good social support. Apparently she had several admissions into the hospital for exacerbation of psychosis. She is on fluphenazine IM 37 mg once a month. Plan 1. Continue with fluphenazine IM 37.5 mg last dose August 17. 2. Continue with HIV meds. 3. We will try to contact her family and have a family meeting. It seems that the patient decompensates before the 4 weeks of her next IM antipsychotic we will recommend to use it more frequently. Reason for continued inpatient stay Substantial Risk for: inability to function, rapid decompensation and med/psych decompensation Time Spent With Patient Time: Total time managing care of this patient today __20__ minutes.
[2024-08-22] MEDS: DOLUTEGRAVIR 50 MG PO (09:52)
[2024-08-22] MEDS: RILPIVIRINE 25 MG PO (09:52)
--- NOTE | 2024-08-22 15:12 | P.PNPSI_ITS ---
Subjective Subjective Date of Service: 08/22/24 Reason For Visit: psych Subjective Notes: Conditional Voluntary Interim History: The nursing staff reported the patient remains flat guarded, she stated that her food was being poisoned. She took some snacks and to her medications. On interview the patient wanted to be discharged as soon as possible, we are going to coordinate her discharge planning for this Tuesday. Mental Status Exam Mental Status Exam Patient Appearance: Appropriate Patient Orientation: Person and Situation Level of Consciousness: Awake and Appropriate Patient Behavior: Guarded and Passive Mood Description: Withdrawn Affect Description: Constricted Patient Cognition Impaired: Yes Ability to Follow Directions: Good Speech Pattern: Clear Hallucinations: None Delusions: Ideas of Reference Thought Process: Distracted and Slowed Thinking Thought Content: positive for [place] and positive for Poverty of Content Judgement: Fair Diagnostics Vital Signs (24Hr): BMI result Body Mass Index 21.7 Medications Medications Current Medications Acetaminophen (Acetaminophen 325 Mg Tablet) 650 mg PO Q6H PRN PRN Reason: Headache/Pain Mild Scale (1-3) Last Admin: 08/20/24 03:20 Dose: 650 mg Al Hydroxide/Mg Hydroxide (Magnesium Hydrox/Alum Hydrox 30 Ml Oral.Susp) 30 ml PO Q6H PRN PRN Reason: Heartburn/Nausea Fluphenazine Decanoate (Fluphenazine Decanoate 25 Mg/Ml 5 Ml Vial) 37.5 mg IM Q28D [facility] Last Admin: 08/16/24 08:28 Dose: Not Given Hydroxyzine HCl (Hydroxyzine Hcl 25 Mg Tablet) 25 mg PO Q6H PRN PRN Reason: Anxiety Lorazepam (Lorazepam 1 Mg Tablet) 5 mg PO DAILY PRN PRN Reason: Anxiety Magnesium Hydroxide (Milk Of Magnesia 30 Ml Oral.Susp) 30 ml PO DAILY PRN PRN Reason: Constipation Patient Own Medication [ Dolutegravir 50mg - Rilpavirine 25mg Tabs] 1 each PO DAILY [facility] Last Admin: 08/22/24 09:52 Dose: 1 each Trazodone HCl (Trazodone Hcl 50 Mg Tablet) 50 mg PO BEDTIME MRX1 PRN PRN Reason: Insomnia Allergies Allergies Allergy/AdvReac Type Severity Reaction Status Date / Time Iodinated Contrast Media Allergy Intermediate Rash Verified 08/12/24 23:14 pollen extracts Allergy Intermediate Itchy Eyes Verified 08/12/24 23:14 haloperidol [From Haldol] AdvReac Intermediate Involuntary Verified 08/13/24 01:32 Spasms Assessment & Plan Assessment & Plan (1) Schizophrenia: Status: Acute Code(s): F20.9 - Schizophrenia, unspecified Plan The patient is a 64-year-old female with a past history of schizophrenia on Prolixin Decanoate referred from the community for hyperactivity and exacerbation of psychosis. Plan 1. Continue with Prolixin Decanoate last shot on August 17. 2. Continue with HIV meds. 3. We will recommend to her outpatient team to use Prolixin every 3 weeks since she had been consistently be admitted around the 3rd week of her injection. Reason for continued inpatient stay Substantial Risk for: inability to function, rapid decompensation and med/psych decompensation Time Spent With Patient Time: Total time managing care of this patient today __20__ minutes.
[2024-08-22 20:00] VITALS: BP 115/64; PULSE 78; RESP 16; TEMP 36.3; O2SAT 98
[2024-08-23] MEDS: DOLUTEGRAVIR 50 MG PO (10:11)
[2024-08-23] MEDS: RILPIVIRINE 25 MG PO (10:11)
--- NOTE | 2024-08-23 14:40 | HO.PSYCHPN ---
Subjective Subjective Date of Service: 08/23/24 Reason For Visit: psych Subjective Notes: Conditional Voluntary Interim History: The nursing staff reported that she was taking her HIV meds at . The executive secretary social welfare will contact his brother for aftercare. On interview, she denied new symptoms, she was been more visible, asking frequently about her discharge, perseverative. No evidence of side effects. Mental Status Exam Mental Status Exam Patient Appearance: Well Grooomed and Appropriate Patient Orientation: Person and Situation Level of Consciousness: Awake and Appropriate Patient Behavior: Guarded and Passive Mood Description: Withdrawn Affect Description: Constricted Patient Cognition Impaired: Yes Ability to Follow Directions: Good Speech Pattern: Clear Hallucinations: None Delusions: Paranoid Ideation and Ideas of Reference Thought Process: Distracted and Slowed Thinking Thought Content: positive for [place] and positive for Poverty of Content Judgement: Poor Diagnostics Vital Signs (24Hr): Vital Signs - 24 hr 08/22/24 20:00 Temperature 97.4 F Pulse Rate 78 Respiratory Rate 16 Blood Pressure 115/64 Pulse Oximetry 98 Oxygen Delivery Method Room Air BMI result Body Mass Index 21.7 Medications Medications Current Medications Acetaminophen (Acetaminophen 325 Mg Tablet) 650 mg PO Q6H PRN PRN Reason: Headache/Pain Mild Scale (1-3) Last Admin: 08/20/24 03:20 Dose: 650 mg Al Hydroxide/Mg Hydroxide (Magnesium Hydrox/Alum Hydrox 30 Ml Oral.Susp) 30 ml PO Q6H PRN PRN Reason: Heartburn/Nausea Fluphenazine Decanoate (Fluphenazine Decanoate 25 Mg/Ml 5 Ml Vial) 37.5 mg IM Q28D [facility] Last Admin: 08/16/24 08:28 Dose: Not Given Hydroxyzine HCl (Hydroxyzine Hcl 25 Mg Tablet) 25 mg PO Q6H PRN PRN Reason: Anxiety Lorazepam (Lorazepam 1 Mg Tablet) 1 mg PO DAILY PRN PRN Reason: Anxiety Magnesium Hydroxide (Milk Of Magnesia 30 Ml Oral.Susp) 30 ml PO DAILY PRN PRN Reason: Constipation Patient Own Medication [ Dolutegravir 50mg - Rilpavirine 25mg Tabs] 1 each PO DAILY [facility] Last Admin: 08/23/24 10:11 Dose: 1 each Trazodone HCl (Trazodone Hcl 50 Mg Tablet) 50 mg PO BEDTIME MRX1 PRN PRN Reason: Insomnia Allergies Allergies Allergy/AdvReac Type Severity Reaction Status Date / Time Iodinated Contrast Media Allergy Intermediate Rash Verified 08/12/24 23:14 pollen extracts Allergy Intermediate Itchy Eyes Verified 08/12/24 23:14 haloperidol [From Haldol] AdvReac Intermediate Involuntary Verified 08/13/24 01:32 Spasms Assessment & Plan Assessment & Plan (1) Schizophrenia: Status: Acute Code(s): F20.9 - Schizophrenia, unspecified Plan The patient is a 64-year-old female with a past history of schizophrenia on Prolixin Decanoate referred from the community for hyperactivity and exacerbation of psychosis. Plan 1. Continue with Prolixin Decanoate last shot on August 17. 2. Continue with HIV meds. 3. We will recommend to her outpatient team to use Prolixin every 3 weeks since she had been consistently be admitted around the 3rd week of her injection. Reason for continued inpatient stay Substantial Risk for: inability to function, rapid decompensation and med/psych decompensation Time Spent With Patient Time: Total time managing care of this patient today __20__ minutes.
[2024-08-23 20:00] VITALS: RESP 16
--- NOTE | 2024-08-24 08:23 | PM.PSYDC ---
DS: Providers Provider Date of Service: 08/24/24 Date of admission: 08/12/24 23:06 Date of discharge: 08/24/24 Primary care physician: Unknown Physician Consults: 08/12/24 23:22 Consult to Hospitalist Routine Comment: Consulting Provider: [facility] Hospitalists Reason For Exam: OSH admission H&P Attending physician on discharge: Eduar Girard DS: Diagnosis Discharge Diagnosis (1) Schizophrenia: Status: Acute DS: Medications Discharge Medications Home Medications: Home Medications ?Medication ?Instructions ?Recorded ?Confirmed fluphenazine decanoate 25 mg/mL 37.5 mg IM Q4W 08/12/24 08/12/24 injection solution Previous Rx's ?Medication ?Instructions ?Recorded dolutegravir 50 mg-rilpivirine 25 1 tab PO DAILY 30 days #30 tabs 08/24/24 mg tablet (Juluca) Mental Status Exam Mental Status Exam Patient Appearance: Well Grooomed and Appropriate Patient Orientation: Person, Place and Situation Level of Consciousness: Awake and Appropriate Patient Behavior: Guarded and Passive Mood Description: Withdrawn Affect Description: Constricted Patient Cognition Impaired: Yes Ability to Follow Directions: Good Speech Pattern: Clear Hallucinations: None Delusions: Ideas of Reference Thought Process: Distracted and Slowed Thinking Thought Content: positive for [place] and positive for Poverty of Content Judgement: Fair DS: Summary Hospital Course Hospital Course: The patient is a 64 year old female with a past history of schizophrenia, living by herself with good social support provided by her brother's referred from another hospital since her brother came and visit her and she was hypoactive, neglecting herself. She was rushed to the emergency room, assessed by crisis and transferring to this facility for psychiatric stabilization. Please see the HPI of the admission note for further details. On intake, the patient was internally preoccupied, seclusive but she adamantly denies auditory hallucinations. It was clear that the patient was psychotic and we review her list of medications. We gather collateral information and apparently she had been receiving Prolixin Decanoate every 4 weeks and in the last year she had 6 admissions. We review the last dose and it was clear that the patient has was having more psychotic symptoms at the end of the 3rd week. We restarted her Prolixin and received a shot on August 17. While she was in the unit, she was very seclusive but later on after her shot she was coming out in the unit and she was more visible. She was asking for expedite discharge. I suggested that she will benefit of having her Prolixin deck every 3 weeks since it was clear that the antipsychotic was weaning off at the end of the 4th week. The patient was in disagreement of that but I told her that she should discuss that with her outpatient psychiatrist. At the moment of the discharge there were no safety concerns, she was able to contract for safety and discharge planning was discussed. Aftercare with outpatient providers was arranged. Time spent discussing smoking cessation with patient: 3 to 10 minutes Status at Discharge Functional status at discharge: independent ambulation Overall status at discharge: patient is back to baseline Time Spent with Patient Time attestation: Total time managing care of this patient today _30___ minutes. Time spent: Less than 30 minutes Discharge Plan Discharge Anticipated Discharge Date/Time: 08/24/24 10:00 Patient Disposition: Home, Self-Care Discharge Diagnosis: Schizophrenia HIV on treatment with antiretrovirals Referrals: Dr.Kate Ellis (Primary Care) [Other] - 08/31/24 11:00 am (You will be seeing on 08/31 at 11:00 Am. If you need to change the appointment for any reason please call the number above.) Milagros Moscoso (Nurse Practionaer) [Other] - 09/06/24 1:00 pm (You will see Milagros on 09/06 at 1pm. If you need to reschedule or get in contact with her please call the number listed.) Discharge Medications: New fluphenazine decanoate 25 mg/mL solution 37.5 mg subcut Q3W Qty: 5 0RF Continued Juluca 50-25 mg tablet 1 tab PO DAILY 30 Days Qty: 30 0RF Discontinued fluphenazine decanoate 25 mg/mL solution 37.5 mg IM Q4W Discharge Orders: Discharge Order (Routine); Ordered 08/24/24 Ordered By: Eduar Girard Diet: Advance to usual diet Activity on Discharge: As tolerated Stand Alone Forms: Patient Portal Discharge page Print Language: Kazakh Care Plan Goals: Care plan goals achieved in this admission Health Concerns: Continue with primary care physician and other outpatient providers. Plan of Treatment: Continue with outpatient providers and other ancillary services. Assessment: The patient is a middle-aged female with a past history of schizophrenia who was referred from another hospital for exacerbation of psychosis. The patient had been receiving Prolixin Decanoate every 4 weeks but it was clear that the antipsychotic was waning of her infectivity at the end of the 3rd week. We restart her antipsychotics and she went back to baseline.
[2024-08-24] MEDS: DOLUTEGRAVIR 50 MG PO (08:51)
[2024-08-24] MEDS: RILPIVIRINE 25 MG PO (08:51)
== END 2024-08-24 10:23 | disposition home or self-care (01) | DRG 750 ==
PROVIDERS: Admitting Provider Psychiatry & Neurology Psychiatry; Visit Provider Psychiatry & Neurology Psychiatry
DX: F20.9 Schizophrenia, unspecified (principal); Z21 Asymptomatic human immunodeficiency virus [HIV] infection status; F17.210 Nicotine dependence, cigarettes, uncomplicated; Z71.6 Tobacco abuse counseling; Z79.899 Other long term (current) drug therapy
CPT/HCPCS: J2680

== ENCOUNTER → 2024-08-12 23:06 | Outpatient (BNV) | payer OTHER, SELFPAY | PROVIDERS: Admitting Provider Psychiatry & Neurology Psychiatry; Visit Provider Psychiatry & Neurology Psychiatry | DX: F20.0 Paranoid schizophrenia (principal) | CPT/HCPCS: 90792; 99231; 99232 ==